=== PATIENT | female | born 1995 | race Hispanic/Latino ===

== ENCOUNTER 2019-10-20 19:05 | Emergency (ER) | payer MEDICAID, SELFPAY ==
[2019-10-20 19:06] VITALS: BP 111/81; PULSE 105; RESP 18; TEMP 36.8; O2SAT 99; BMI 21.0
--- NOTE | 2019-10-20 19:30 | RAD_ITS ---
HISTORY: PAIN ALL OVER FOOT AFTER FALL DOWN STAIRS. UNABLE TO FLEX FOOT DUE TO INJURY 3 YEARS AGO THAT LEFT HER WITH DROP FOOT. COMPARISON: None FINDINGS: # of images incl. paperwork: 3 XR Foot Min 3 Views : No fracture or subluxation. No osseous or soft tissue abnormality. The joint spaces are well-maintained. No radiopaque foreign body is seen. RAD/Foot min 3 Views IMPRESSION: No evidence of acute injury to the right foot. Osteoporosis. at 2047 Reported and signed by: Bertin Patel MD Electronically Signed: Bertin Patel MD at 20:46 EDT Tel , Service support ,
--- NOTE | 2019-10-20 19:40 | RAD_ITS ---
HISTORY: TRIPPED AND FELL DOWN STAIRS . PAIN LATERAL SIDE OF ANKLE. UNABLE TO FLEX FOOT DUE TO PREVIOUS INJURY 3 YEARS AGO WHICH LEFT HER WITH DROP FOOT. COMPARISON: None FINDINGS: # of images incl. paperwork: 3 XR Ankle Min 3 Views : No fracture or osseous abnormality. The ankle mortise is intact. Soft tissue swelling is not seen. RAD/Ankle min 3 Views IMPRESSION: Normal right ankle. at 2046 Reported and signed by: Bertin Patel MD Electronically Signed: Bertin Patel MD at 20:45 EDT Tel , Service support ,
--- NOTE | 2019-10-20 19:42 | ED.DCSUM_ITS ---
- ER Visit Summary Date of Service: 10/20/19 Chief Complaint: Right ankle pain History of Present Illness: The patient is a 24 F presenting with right ankle pain. Patient states she was walking down steps and rolled her ankle. She states this happens frequently. She has a history of drop foot secondary to previous fasciotomy. She denies other complaints. Physical Examination: Vitals are stable. Patient is afebrile. Alert no acute distress. HEENT exam is unremarkable. Neck is supple. Lungs are clear and equal bilaterally. Heart is regular rate and rhythm. Extremities right lateral ankle tenderness with no significant swelling. No Achilles tendon tenderness. No proximal fibular tenderness. Mild right lateral foot tenderness. Normal pulses. Skin is warm and dry. Remainder of exam is unremarkable. Emergency Department Course and Treatment: Right foot x-ray shows no evidence of acute injury to the right foot. Right ankle x-ray shows normal right ankle. Patient eloped from the emergency department prior to receiving results. She was able to ambulate out of the ED without difficulty. Disposition: Elopement Impression: Right ankle injury This note was generated with [employer] dictation software. It may contain incorrect words, spelling, and punctuation that were not noted in review of the chart prior to signing ED Disposition - Plan for ED Patient: Referrals: NOT,DEFINED [Primary Care Provider] -
--- NOTE | 2019-10-20 20:40 | ED.RN ---
pt left [facility]a, was seen by triage staff and the hro officer walking out wrapped up in her own blanket. pt did not return.
== END 2019-10-20 21:05 | disposition home or self-care (01) ==
LOC: ED 21:04
PROVIDERS: Emergency Provider Emergency Medicine
DX: S99.911A Unspecified injury of right ankle, initial encounter (principal); X50.1XXA Overexertion from prolonged static or awkward postures, initial encounter; Y93.01 Activity, walking, marching and hiking; Y92.9 Unspecified place or not applicable; Y99.9 Unspecified external cause status
CPT/HCPCS: 73610; 73630; 99282